=== PATIENT | male | born 1970 | race Caucasian/White ===

== ENCOUNTER 2020-05-03 06:19 | Emergency (ER) | payer MEDICARE, OTHER ==
[~2020-05-03] VITALS: Ht 175.3 cm; Wt 68.0 kg
--- NOTE | 2020-05-03 06:35 | NUR ---
at bedside for assessment
[2020-05-03] MEDS ORDERED: SULFAMETH/TRIMETH 800/160 MG TABLET ONE (06:57)
[2020-05-03] MEDS ORDERED: SULFAMETH/TRIMETH 800/160 MG TABLET PO ONE (07:00)
--- NOTE | 2020-05-03 07:02 | NUR ---
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
--- NOTE | 2020-05-03 08:00 | NUR ---
Patient given written and verbal discharge instructions. Patient verbalizes understanding of instructions. Patient is ambulatory with steady gait. Refuses offer of [facility] placement. Patient given list of available shelters in surrounding area.
[2020-05-03 08:23] VITALS: BP 107/71
== END 2020-05-03 08:00 | disposition home or self-care (01) ==
LOC: ER 06:21
DX: L03.115 Cellulitis of right lower limb (principal); Z59.0 Homelessness; F25.0 Schizoaffective disorder, bipolar type; Z90.49 Acquired absence of other specified parts of digestive tract
CPT/HCPCS: A4663